=== PATIENT | male | born 1955 | race Caucasian/White ===

== ENCOUNTER 2016-12-20 15:14 | Observation (INO) | payer BC, OTHER ==
[~2016-12-20] VITALS: Ht 180.3 cm; Wt 110.0 kg
[2016-12-20] VITALS (11 sets, daily range): BP systolic 85–135; BP diastolic 51–83; PULSE 78–100; RESP 16–26; TEMP 97.6–98; O2SAT 92–98
[~2016-12-20 15:14] MED LIST: AMLO5TAB22 PO; BACT800T5 PO; HYDR-3533 PO; METO50TA PO; PHEN1TAB49 PO; SIMV10 PO; ULTR50TA PO; ZANT150T2 PO
[2016-12-20] MEDS ORDERED: FAMOTIDINE 20 MG/2 ML VIAL IV PUSH ONE (15:30)
[2016-12-20] MEDS ORDERED: diphenhydrAMINE HCL 50 MG/ML VIAL IVP ONE (15:30)
[2016-12-20] MEDS ORDERED: methylPREDNISolone SOD SUCC 125 MG/2 ML VIAL IVP ONE (15:30)
[2016-12-20] MEDS ORDERED: SODIUM CHLORIDE 0.9% FLUSH 10 ML FLUSH IV FLUSH PRN (15:30)
[2016-12-20] MEDS ORDERED: LORazepam 2 MG/ML VIAL ONE (15:30)
[2016-12-20] MEDS ORDERED: EPINEPHrine HCL (1:10,000) 1 MG/10 ML SYRINGE IV ONE (15:30)
[2016-12-20] MEDS ORDERED: SODIUM CHLOR 0.9% 1000 ML INJ 1,000 ML IV ONE ×3 (15:30→16:00)
[2016-12-20] MEDS ORDERED: RESP: ALBUTEROL 2.5 MG/3 ML NEB (SCH) INH ONE (15:30)
[2016-12-20 15:36] LABS: AUTOMATED NEUTROPHIL # 4.1 TH/MM3 (1.8-7.7); BASOPHIL % 0.3 % (0.0-2.0); EOSINOPHIL # 0.1 TH/MM3 (0-0.4); EOSINOPHIL % 1.3 % (0.0-4.0); HEMO FLAGS DIFF FINAL; LYMPH % 32.8 % (9.0-44.0); LYMPHOCYTE # 2.3 TH/MM3 (1.0-4.8); MEAN CELL VOLUME 89.8 FL (80.0-100.0); MEAN CORPUSCULAR HEMOGLOBIN 30.6 PG (27.0-34.0); MEAN CORPUSCULAR HGB CONC 34.1 % (32.0-36.0); MONO % 6.2 % (0.0-8.0); NEUT % 59.4 % (16.0-70.0); PLATELET COUNT 282 TH/MM3 (150-450); RED BLOOD COUNT 5.57 MIL/MM3 (4.50-5.90); RED CELL DISTRIBUTION WIDTH 12.8 % (11.6-17.2); WHITE BLOOD COUNT 6.9 TH/MM3 (4.0-11.0)
[2016-12-20 15:45] LABS: CHLORIDE 109 MEQ/L (98-107); POTASSIUM 3.8 MEQ/L (3.5-5.1); SODIUM (NA) 145 MEQ/L (136-145)
[2016-12-20] MEDS ORDERED: EXENINJ SQ (15:45)
[2016-12-20 15:49] LABS: ANION GAP 11 MEQ/L (5-15); BLOOD UREA NITROGEN 28 MG/DL (7-18)
[2016-12-20 15:52] LABS: ALT (GPT) 31 U/L (12-78); AST (GOT) 16 U/L (15-37); GLOMERULAR FILTRATION RATE 47 ML/MIN (>89)
[2016-12-20 15:54] LABS: TOTAL BILIRUBIN ADULT 0.4 MG/DL (0.2-1.0)
[2016-12-20 15:55] LABS: ALKALINE PHOSPHATASE 87 U/L (45-117)
--- NOTE | 2016-12-20 16:08 | RADHPO ---
EXAM DATE/TIME: 12/20/2016 15:41 [facility] COMPARISON: CHEST SINGLE AP, July 25, 2013, 13:51. CHEST SINGLE AP, August 02, 2013, 12:52. CT THORAX W/O C ONTRAST, August 03, 2013, 13:55. CHEST SINGLE AP, August 04, 2013, 5:44. CHEST SINGLE AP, August 07, 2013, 4:47. INDICATIONS : Short of breath MEDICAL HISTORY : None. SURGICAL HISTORY : None. ENCOUNTER: Initial ACUITY: 1 day PAIN SCORE: 0/10 LOCATION: Bilateral chest FINDINGS: The lungs are symmetrically aerated and clear. There is mild fullness of the hilar region bilaterall y suggesting possibility of bilateral hilar adenopathy or pulmonary arterial hypertension. Both joceline diaphragms well delineated. The heart is normal in size. No evidence of pneumothorax. There is a c atheter projected on the right-sided in the subclavian and mid chest region; prior chest x-rays in 14 had demonstrated a PICC line; the catheter on today's examination does not have the typical course of the PICC line and deviates to the lateral mid chest inferiorly. CONCLUSION: 1. No infiltrates seen. 2. Bilateral hilar fullness with differential considerations including pulmonary arterial hypertensio n and bilateral hilar adenopathy. 3. There is a catheter with unusual course projected over the right hemithorax. Please correlate cli nically. Sergio Senior MD on December 20, 2016 at 16:03 Board Certified Radiologist. This report was verified electronically.
--- NOTE | 2016-12-20 16:11 | PD ---
HPI Chief Complaint: Allergic/Adverse Reaction Time Seen by Provider: 15:20 Travel History International Travel<30 days: No Contact w/Intl Traveler<30days: No Traveled to known affect area: No History of Present Illness HPI This patient arrives critically ill in anaphylactic shock. He was feeling fine and eating some olives when he abruptly developed hives and itching diffusely on his skin. At the time he arrived to the emergency department he had swelling of his lower lip and tongue. He was feeling short of breath and wheezing. Systolic blood pressure on arrival 75. He says his normal blood pressure is 115 systolic. Symptoms were severe. Duration 45 minutes. No alleviating factors. PFSH Past Medical History Autoimmune Disease: No Heart Rhythm Problems: Yes (BUNDLE BRANCH BLOCK ) Cancer: Yes (history of prostate ca - FIVE YEARS AGO) Cardiovascular Problems: Yes Chemotherapy: No Diabetes: Yes (PRE) Patient Takes Glucophage: No Diminished Hearing: No Endocrine: No Gastrointestinal Disorders: Yes GERD: Yes Genitourinary: Yes Hypertension: Yes Immune Disorder: Yes (low IgG) Musculoskeletal: No Neurologic: No Psychiatric: No Reproductive: No Respiratory: Yes (Pneumonia) Immunizations Current: Yes Radiation Therapy: Yes Sleep Apnea: Yes (CPAP NIGHTLY) Thyroid Disease: No Tetanus Vaccination: > 5 Years Influenza Vaccination: Yes Past Surgical History Abdominal Surgery: No Cardiac Surgery: No Ear Surgery: No Endocrine Surgery: No Eye Surgery: No Gynecologic Surgery: No (n/a ) Oral Surgery: No Thoracic Surgery: No Tonsillectomy: Yes (T&A) Other Surgery: Yes (MIDIA STINOCSOPY, BRONCHOSCOPY) Social History Alcohol Use: Yes (SOCIAL, ON WEEKENDS, 3 BEERS) Tobacco Use: No Substance Use: No Allergies-Medications (Allergen,Severity, Reaction): Coded Allergies: No Known Allergies (Unverified , 12/20/16) Reported Meds & Prescriptions Reported Meds & Active Scripts Active Reported Bydureon Inj (Exenatide) 2 Mg Vial 2 Mg SQ Q7D Review of Systems General / Constitutional: No: Fever Eyes: No: Visual changes HENT: Positive: Lightheadedness, No: Headaches Cardiovascular: No: Chest Pain or Discomfort Respiratory: Positive: Shortness of Breath, Wheezing Gastrointestinal: No: Abdominal Pain Genitourinary: No: Dysuria Musculoskeletal: Positive: Weakness, No: Pain Skin: Positive Rash, Positive Hives Neurologic: Positive: Weakness Psychiatric: No: Depression Endocrine: No: Polydipsia Hematologic/Lymphatic: No: Easy Bruising Physical Exam Narrative GENERAL: Well-nourished, well-developed patient in distress. SKIN: Focused skin assessment reveals diffuse erythema and urticarial lesions on all extremities. Skin is cool and dry. HEAD: Atraumatic. Normocephalic. EYES: Pupils equal and round. No scleral icterus. No injection or drainage. ENT: No nasal bleeding or discharge. Mucous membranes pink and moist. He has some diffuse swelling of the lower lip and tongue. Uvula is midline without swelling. Upper lip is not swollen. No submental induration or swelling. NECK: Trachea midline. No JVD. CARDIOVASCULAR: Regular rate and rhythm. No murmur appreciated. RESPIRATORY: No accessory muscle use. Expiratory wheezing noted. Breath sounds equal bilaterally. GASTROINTESTINAL: Abdomen soft, non-tender, nondistended. Hepatic and splenic margins not palpable. MUSCULOSKELETAL: No obvious deformities. No clubbing. No cyanosis. No edema. NEUROLOGICAL: Awake and alert. No obvious cranial nerve deficits. Motor grossly within normal limits. Normal speech. PSYCHIATRIC: Appropriate mood and affect; insight and judgment normal. Data Data Last Documented VS Vital Signs Date Time Temp Pulse Resp B/P Pulse Ox O2 Delivery O2 Flow Rate FiO2 12/20/16 16:12 93 16 90/52 98 Nasal Cannula 3 12/20/16 15:46 97.6 Orders Complete Blood Count With Diff (12/20/16 15:20) Comprehensive Metabolic Panel (12/20/16 15:20) Ecg Monitoring (12/20/16 15:20) Iv Access Insert/Monitor (12/20/16 15:20) Oximetry (12/20/16 15:20) Oxygen Administration (12/20/16 15:20) Diphenhydramine Inj (Benadryl Inj) (12/20/16 15:30) Methylprednisolone So Succ Inj (Solumedr (12/20/16 15:30) Famotidine Inj (Pepcid Inj) (12/20/16 15:30) Albuterol Neb (Albuterol Neb) (12/20/16 15:30) Sodium Chloride 0.9% Flush (Ns Flush) (12/20/16 15:30) Sodium Chlor 0.9% 1000 Ml Inj (Ns 1000 M (12/20/16 15:30) Epinephrine (1:10,000) Inj (Epinephrine (12/20/16 15:30) Sodium Chlor 0.9% 1000 Ml Inj (Ns 1000 M (12/20/16 15:30) Lorazepam Inj (Ativan Inj) (12/20/16 15:30) Chest, Single Ap (12/20/16 ) Electrocardiogram (12/20/16 ) Sodium Chlor 0.9% 1000 Ml Inj (Ns 1000 M (12/20/16 16:00) Labs Laboratory Tests Test 12/20/16 15:20 White Blood Count 6.9 TH/MM3 Red Blood Count 5.57 MIL/MM3 Hemoglobin 17.1 GM/DL Hematocrit 50.0 % Mean Corpuscular Volume 89.8 FL Mean Corpuscular Hemoglobin 30.6 PG Mean Corpuscular Hemoglobin 34.1 % Concent Red Cell Distribution Width 12.8 % Platelet Count 282 TH/MM3 Mean Platelet Volume 8.7 FL Neutrophils (%) (Auto) 59.4 % Lymphocytes (%) (Auto) 32.8 % Monocytes (%) (Auto) 6.2 % Eosinophils (%) (Auto) 1.3 % Basophils (%) (Auto) 0.3 % Neutrophils # (Auto) 4.1 TH/MM3 Lymphocytes # (Auto) 2.3 TH/MM3 Monocytes # (Auto) 0.4 TH/MM3 Eosinophils # (Auto) 0.1 TH/MM3 Basophils # (Auto) 0.0 TH/MM3 CBC Comment DIFF FINAL Differential Comment Sodium Level 145 MEQ/L Potassium Level 3.8 MEQ/L Chloride Level 109 MEQ/L Carbon Dioxide Level 25.0 MEQ/L Anion Gap 11 MEQ/L Blood Urea Nitrogen 28 MG/DL Creatinine 1.50 MG/DL Estimat Glomerular Filtration 47 ML/MIN Rate Random Glucose 129 MG/DL Calcium Level 9.1 MG/DL Total Bilirubin 0.4 MG/DL Aspartate Amino Transf 16 U/L (AST/SGOT) Alanine Aminotransferase 31 U/L (ALT/SGPT) Alkaline Phosphatase 87 U/L Total Protein 7.1 GM/DL Albumin 3.7 GM/DL [facility] Medical Decision Making Medical Screen Exam Complete: Yes Emergency Medical Condition: Yes Medical Record Reviewed: Yes Differential Diagnosis Anaphylactic shock, allergic reaction, Bhatia-Justice syndrome Narrative Course I have reviewed the patient's electronic medical record. Patient was last here in 2014. He was hospitalized in 2013 for respiratory failure due to influenza pneumonia and required extended mechanical ventilation Patient is critically ill. I felt rapid intervention was necessary to reverse the course of his anaphylaxis. 2 IVs placed I gave him 0.5 mg 1-10,000 IV epinephrine given his hypotension I gave him 2 L normal saline IV bolus Gave him IV Solu-Medrol and IV Benadryl and IV Pepcid I gave him an albuterol nebulizer treatment given his poor saturation and wheezing I believe the combination of epinephrine and albuterol caused a lot of cardiac ectopy He developed PVCs and very brief runs of wide complex V. tach which terminated spontaneously Blood pressure after the above came up to 85 systolic I gave him a third liter of normal saline IV His rash and hives have resolved I reviewed his chest x-ray shows some hilar fullness but no infiltrates I reviewed his EKG shows sinus rhythm with a right bundle branch block which is chronic per patient CBC is normal Metabolic profile is normal except for minor renal sufficiency with creatinine of 1.5 LFTs are normal After 3 L saline and blood pressures at 100 systolic and heart rate is 100 He is clearly much better but I don't think he should go home with such a dramatic unstable presentation on arrival. I reviewed with hospitalist will observe him on telemetry overnight here Critical Care Narrative Aggregate critical care time was 82 minutes. Time to perform other separately billable procedures was not included in the critical care time. My time did not include minutes spent treating any other patients simultaneously or on activities that did not directly contribute to the patient's treatment. The services I provided to this patient were to treat and/or prevent clinically significant deterioration that could result in: Anaphylactic shock, cardiopulmonary arrest, cardiac arrhythmia I provided critical care services requiring my management, as noted below: Chart data review, documentation time, medication orders and management, vital sign assessments/reviewing monitor data, ordering and reviewing lab tests, ordering and interpreting/reviewing x-rays and diagnostic studies, care of the patient and discussion of the patient with the admitting physicians. Diagnosis Primary Impression: Anaphylactic shock due to fruits Qualified Code: T78.04XA - Anaphylactic shock due to fruits, initial encounter Admitting Information Admitting Physician Requests: Observation Eldon Alvarado MD Dec 20, 2016 16:10
[2016-12-20] MEDS: SODIUM CHLOR 0.9% 1000 ML INJ 1,000 ML IV SCH ×2 (19:00→22:44)
[2016-12-20] MEDS ORDERED: DEXTROSE 50% IN WATER 50 ML VIAL(D50) IV PRN (19:00)
[2016-12-20] MEDS ORDERED: GLUCAGON 1 MG/ML VIAL OTHER PRN (19:00)
[2016-12-20] MEDS: INSULIN ASPART SUPPLEMENTAL SCALE SQ SCH (21:00)
[2016-12-20] MEDS: FAMOTIDINE 20 MG TAB PO SCH (22:43)
[2016-12-20] MEDS: predniSONE 20 MG TAB PO SCH (22:43)
[2016-12-20] MEDS: diphenhydrAMINE HCL 25 MG CAP PO SCH (23:37)
[2016-12-21 00:52] VITALS: BP 125/76; PULSE 90; RESP 16; TEMP 98.2; O2SAT 92
[2016-12-21] MEDS: diphenhydrAMINE HCL 25 MG CAP PO SCH ×2 (02:52→08:00)
[2016-12-21 04:13] VITALS: BP 142/89; PULSE 83; RESP 18; TEMP 98; O2SAT 93
[2016-12-21 06:54] LABS: POTASSIUM 4.3 MEQ/L (3.5-5.1)
[2016-12-21 06:56] LABS: HEMATOCRIT 47.7 % (39.0-51.0); MEAN CELL VOLUME 91.3 FL (80.0-100.0); MEAN CORPUSCULAR HEMOGLOBIN 29.7 PG (27.0-34.0); MEAN CORPUSCULAR HGB CONC 32.5 % (32.0-36.0); PLATELET COUNT 246 TH/MM3 (150-450); RED BLOOD COUNT 5.22 MIL/MM3 (4.50-5.90); RED CELL DISTRIBUTION WIDTH 13.7 % (11.6-17.2); REVIEW FLAG FINAL; WHITE BLOOD COUNT 9.2 TH/MM3 (4.0-11.0)
[2016-12-21 06:57] LABS: BICARBONATE 23.6 MEQ/L (21.0-32.0)
[2016-12-21] MEDS: INSULIN ASPART SUPPLEMENTAL SCALE SQ SCH (07:00)
[2016-12-21 08:00] VITALS: BP 156/93; PULSE 80; RESP 18; TEMP 97.4; O2SAT 94
[2016-12-21] MEDS: FAMOTIDINE 20 MG TAB PO SCH (09:00)
[2016-12-21] MEDS: predniSONE 20 MG TAB PO SCH (09:00)
--- NOTE | 2016-12-21 09:10 | MH ---
cc: ZANE AMOS MD DATE OF ADMISSION: 12/20/2016 CHIEF COMPLAINT Allergic reaction to olives. HISTORY OF PRESENT ILLNESS This is a 61-year-old male with a past medical/surgical history significant for bundle branch block, history of prostate cancer five years ago, history of diabetes mellitus, hypertension, low IgG, history of pneumonia in the past, history of sleep apnea using CPAP at night, history of tonsillectomy and adenoidectomy, history of mediastinoscopy and bronchoscopy, who came to the ER at [facility] critically ill and having and anaphylactic reaction. He was feeling fine, eating some olives when he abruptly developed hives and itching of his skin. At the time of arrival to the emergency department he had swelling of his lower lip and tongue and he was feeling short of breath and wheezing. Systolic blood pressure on arrival was 75. He states that his normal blood pressure is 115 systolic. Symptoms were severe and he got emergent epinephrine and other allergy medication including Benadryl, Solu-Medrol and famotidine. He felt a lot better after that. He has no chest pain, no shortness of breath, no tongue swelling, no lip swelling, no nausea or vomiting. He wants to go home. Other than that nothing significant. PAST MEDICAL/SURGICAL HISTORY As dictated above. SOCIAL HISTORY Drinks alcohol socially. Denies any smoking or drug abuse. Lives at home. He is . He is retired. FAMILY HISTORY Significant for coronary artery disease. ALLERGIES No known drug allergies. MEDICATIONS Exenatide 2 mg subcutaneous q.7 days. REVIEW OF SYSTEMS All review of systems are negative. The patient does not have any symptoms or complaints at the time of examination. PHYSICAL EXAMINATION GENERAL: This is a 61-year-old male sitting on the bed, not in acute distress. VITAL SIGNS: Temperature 97.4, heart rate 80, respirations 18, blood pressure 156/93, O2 saturation 94% on room air. HEENT: Normocephalic, atraumatic. EOMI. PERRL. Oral mucosa moist. NECK: Supple. No visible thyromegaly or neck mass. Trachea is central. CV: Regular rate and rhythm. LUNGS: Respirations clear to auscultation bilaterally. ABDOMEN: Soft, nontender. Bowel sounds audible. EXTREMITIES: No cyanosis. No clubbing. Full range of motion of all extremities. NEUROLOGIC: Awake, alert, oriented x4. No focal deficits. SKIN: Warm and dry. PSYCHIATRIC: The patient is cooperative. Mood and affect are normal. LABORATORY CBC is totally unremarkable. BMP shows chloride 113 which is high, BUN 19 high, creatinine 1.20 normal, estimated GFR 61, glucose random 113, calcium 8.4 low. LFTs are normal. IMAGING Chest x-ray was done and shows no infiltrate seen, bilateral hilar fullness with differential including pulmonary arterial hypertension and bilateral hilar adenopathy. There is a catheter with an unusual course projecting over the right hemithorax. ASSESSMENT AND PLAN This is a 67-year-old male who came to the ER diagnosed with acute allergic reaction after eating an olive. The patient got epinephrine, Solu-Medrol, famotidine and Benadryl. The patient is completely asymptomatic. The patient wants to go home. Okay to discharge the patient home. The patient was advised to follow with PCP and if condition worsens to come back to the ER. Further details in the medical record. Zane Amos MD EA/BLANCA /8:47 AM /9:00 AM
--- NOTE | 2016-12-21 11:50 | EKG ---
Date Performed: 12/20/2016 Time Performed: 15:42:46 PTAGE: 61 years EKG: Sinus rhythm . Right bundle branch block Inferior T wave changes are nonspecific Low QRS voltages in precordial le ads Since previous tracing, no significant change noted Abnormal ECG PREVIOUS TRACING : 07/18/2013 07.16 DOCTOR: Vishnu Andersen Interpretating Date/Time 12/21/2016 11:50:05
== END 2016-12-21 10:25 | disposition home or self-care (01) ==
LOC: PHED 15:14 → PHEDA 16:46 → PH3A 17:51
PROVIDERS: ADMIT Family Medicine; ATTEND Family Medicine
DX: T78.04XA Anaphylactic reaction due to fruits and vegetables, initial encounter (principal); L50.0 Allergic urticaria; L29.8 Other pruritus; R22.0 Localized swelling, mass and lump, head; R06.02 Shortness of breath; R06.2 Wheezing; R53.1 Weakness; R42 Dizziness and giddiness; I95.9 Hypotension, unspecified; I45.10 Unspecified right bundle-branch block; R94.31 Abnormal electrocardiogram [ECG] [EKG]; R91.8 Other nonspecific abnormal finding of lung field; I10 Essential (primary) hypertension; E11.9 Type 2 diabetes mellitus without complications; G47.30 Sleep apnea, unspecified; K21.9 Gastro-esophageal reflux disease without esophagitis; Z85.46 Personal history of malignant neoplasm of prostate
CPT/HCPCS: 71010; 80048; 80053; 82948; 85025; 85027; 93005; 94664; 96361; 96374; 96375; 99291; 99292; G0378; J0171; J1200; J2060; J2930; J7030; J7512; J7613

== ENCOUNTER → 2017-01-14 | Outpatient (CLI) | payer BC, OTHER ==
[~2017-01-14] MED LIST changes: -AMLO5TAB22 PO; -BACT800T5 PO; +EXENINJ SQ; -HYDR-3533 PO; -METO50TA PO; -PHEN1TAB49 PO; -SIMV10 PO; -ULTR50TA PO; -ZANT150T2 PO
--- NOTE | 2017-01-14 10:16 | RADRPT ---
EXAM DATE/TIME: 01/14/2017 09:51 [facility] COMPARISON: No previous studies available for comparison. INDICATIONS : Dysphagia with liduids for over 1 year. FLUORO TIME: 0.8 minutes IMAGE COUNT: 1 CONTRAST: Dose as prescribed by speech pathologist. MEDICAL HISTORY : Hypertension. Carcinoma, prostatic. Gastroesophageal reflux disease. Diabetes. Bundle branch bloc k. SURGICAL HISTORY : None. ENCOUNTER: Initial ACUITY: >1 year PAIN SCORE: 0/10 LOCATION: Esophagus. FINDINGS: A modified barium swallow was performed with speech pathology. Patient was given a variety of liquids to swallow. Patient swallowed the liquids without difficulty. There is no evidence of aspiration. There are prominent anterior osteophytes at C5-6 and C6-7 producing some impingement on the posterior wall of the cervical esophagus at these levels. For a full detailed report, see report by the speech pathologist. CONCLUSION: Modified swallow as above. Amanuel Vazquez MD on January 14, 2017 at 10:12 Board Certified Radiologist. This report was verified electronically.
== END ==
LOC: HRAD 09:16
PROVIDERS: ATTEND Physical Medicine & Rehabilitation
DX: R13.10 Dysphagia, unspecified (principal)
CPT/HCPCS: 74230; 92611; G8996; G8997; G8998